=== PATIENT | male | born 1975 | race Caucasian/White ===

== ENCOUNTER 2016-12-18 15:07 | Emergency (ER) | payer BC ==
[2016-12-18 15:17] VITALS: BP 146/82
--- NOTE | 2016-12-18 16:00 | UC ---
Abdominal Pain Male HPI - HPI Summary HPI Summary: 4 DAYS OF LOWER ABDOMINAL PAIN AND BLOODY DIARRHEA. REPORTS ABOUT 15 EPISODES A DAY. NO FEVER. NO N/V. DRINKS 4-5 BEERS AND 4-5 SHOTS PER DAY. - History of Current Complaint Chief Complaint: UCAbdominalPain Stated Complaint: BLOODY DIARRHEA,ABD PAIN Time Seen by Provider: 12/18/16 15:29 Hx Obtained From: Patient Onset/Duration: Sudden Onset, Lasting Days, Still Present Timing: Intermittent Episodes Lasting: Severity Initially: Moderate Severity Currently: Moderate Pain Intensity: 5 Pain Scale Used: 0-10 Numeric Location: Other - LOWER ABD Radiates: No Character: Cramping Aggravating Factor(s):: Nothing Alleviating Factor(s): Nothing Associated Signs And Symptoms: Positive: Blood in Stool, Diarrhea. Negative: Fever, Back Pain, Constipation, Urinary Symptoms, Decreased Appetite, Nausea, Vomiting - Allergies/Home Medications Allergies/Adverse Reactions: Allergies Allergy/AdvReac Type Severity Reaction Status Date / Time Penicillins Allergy Unknown Hives Verified 12/18/16 15:59 Home Medications: Home Medications Lorazepam [Ativan 0.5 MG TAB] 0.5 mg PO PRN 12/18/16 [History] PMH/Surg Hx/FS Hx/Imm Hx Psychological History: Anxiety - Surgical History Surgical History: None - Family History Known Family History: Negative: Hypertension - Social History Alcohol Use: Daily Substance Use Type: Marijuana Smoking Status (MU): Current Some Day Smoker Type: Cigarettes Amount Used/How Often: 1/2 ppd Length of Time of Smoking/Using Tobacco: 21 years Have You Smoked in the Last Year: No Review of Systems Constitutional: Negative Respiratory: Negative Cardiovascular: Negative Gastrointestinal: Abdominal Pain, Diarrhea All Other Systems Reviewed And Are Negative: Yes Physical Exam Triage Information Reviewed: Yes Appearance: Well-Appearing, No Pain Distress, Well-Nourished Vital Signs: Initial Vital Signs Temp 99.0 F 12/18/16 15:13 Pulse 97 12/18/16 15:13 Resp 18 12/18/16 15:13 BP 146/82 12/18/16 15:13 Pulse Ox 97 12/18/16 15:13 Vital Signs Reviewed: Yes Eyes: Positive: Conjunctiva Clear ENT: Positive: Hearing grossly normal Neck: Positive: Supple Respiratory Exam: Normal Cardiovascular Exam: Normal Abdomen Description: Positive: Soft, Other: - TTP RUQ AND EPIGASTRIC. PT DECLINES RENEE. Negative: Distended, Guarding Bowel Sounds: Positive: Present Musculoskeletal: Positive: No Edema Neurological: Positive: Alert Psychological: Positive: Age Appropriate Behavior Skin: Negative: rashes Abd Pain Male Course/Dx - Course Course Of Treatment: TO [facility] BY [facility] CAR. RN CALLED REPORT TO ER - Differential Dx/Clinical Impression Provider Diagnoses: ABD PAIN, BRBPR Discharge - Discharge Plan Condition: Stable Disposition: AGAINST MEDICAL ADVICE Referrals: Felisha Barnes MD [Primary Care Provider] -
== END 2016-12-18 16:10 | disposition left against medical advice (07) ==
LOC: UCEAST 15:07
DX: K62.5 Hemorrhage of anus and rectum (principal); R10.13 Epigastric pain; R10.11 Right upper quadrant pain; Z53.20 Procedure and treatment not carried out because of patient's decision for unspecified reasons; F10.180 Alcohol abuse with alcohol-induced anxiety disorder; F19.90 Other psychoactive substance use, unspecified, uncomplicated; Z72.0 Tobacco use
CPT/HCPCS: 99212; G0463

== ENCOUNTER 2019-07-15 07:23 | Emergency (ER) | payer BC, OTHER ==
--- NOTE | 2019-07-15 07:36 | ED ---
Dizziness - HPI Summary HPI Summary: This pt is a 44 Y/O M presenting to [facility] with a CC of vertigo since 07/13/19 at 2000. He states that he was seen at yesterday and had a R eye flush without any relief. He states that yesterday when he was sitting still or moving slowly he had little to no dizziness. He states that his symptoms worsened with movement and change of position starting yesterday at 1500. He states that he has had a headache since the onset. He also states that the dizziness is described as room spinning. He denies any nausea or vomiting during these episodes and pain/pressure in his ears. He also denies any fevers, chills, CP, SOB, and sore throats. He states that he has had similar symptoms in 2014. He has no pertinent PMHx but does have a SHx of smoking cigarettes and drinking daily. - History Of Current Complaint Chief Complaint: EDDizziness Stated Complaint: DIZZY PER PT Time Seen by Provider: 07/15/19 07:25 Hx Obtained From: Patient Onset/Duration: Still Present Timing: Constant Severity Initially: Moderate Severity Currently: Moderate Character: Room Spinning Aggravating Factor(s): Position Change, Other - movement Alleviating Factor(s): Rest Associated Signs And Symptoms: Positive: Negative - sore throat, Visual Changes - room spinning. Negative: Nausea, Vomiting, Diarrhea, Chest Pain, SOB, Fever, Chills - Allergies/Home Medications Allergies/Adverse Reactions: Allergies Allergy/AdvReac Type Severity Reaction Status Date / Time Penicillins Allergy Hives Verified 07/15/19 07:27 PMH/Surg Hx/FS Hx/Imm Hx Previously Healthy: Yes Endocrine/Hematology History: Denies: Hx Diabetes Cardiovascular History: Denies: Hx Hypertension, Hx Pacemaker/ICD History: Denies: Hx Renal Disease Sensory History: Denies: Hx Hearing Aid Psychiatric History: Denies: Hx Panic Disorder - Cancer History Hx Chemotherapy: No Hx Radiation Therapy: No - Surgical History Surgical History: None Infectious Disease History: No Infectious Disease History: Denies: Hx Clostridium Difficile, Hx Hepatitis, Hx Human Immunodeficiency Virus (HIV), Hx of Known/Suspected MRSA, Hx Shingles, Hx Tuberculosis, Hx Known/ Suspected VRE, Hx Known/Suspected VRSA, History Other Infectious Disease, Traveled Outside the [place] in Last 30 Days - Family History Known Family History: Negative: Hypertension - Social History Occupation: Employed Full-time Lives: With Family Alcohol Use: Daily Alcohol Amount: beer and whiskey Hx Substance Use: Yes Substance Use Type: Reports: Marijuana Hx Tobacco Use: Yes Smoking Status (MU): Heavy Every Day Tobacco Smoker Type: Cigarettes Amount Used/How Often: 1/2 ppd Length of Time of Smoking/Using Tobacco: 21 years Have You Smoked in the Last Year: No Review of Systems Negative: Fever, Chills Positive: Other - room spinning Negative: Sore Throat, Ear Ache Negative: Chest Pain Negative: Shortness Of Breath Negative: Vomiting, Nausea All Other Systems Reviewed And Are Negative: Yes Physical Exam - Summary Physical Exam Summary: Constitutional: Well-developed, Well-nourished, Alert. (-) Distressed Skin: Warm, Dry HENT: Normocephalic; Atraumatic Eyes: Conjunctiva normal Neck: Musculoskeletal ROM normal neck. (-) JVD, (-) Stridor, (-) Tracheal deviation Cardio: Rhythm regular, rate normal, Heart sounds normal; Intact distal pulses; The pedal pulses are 2+ and symmetric. Radial pulses are 2+ and symmetric. Pulmonary/Chest wall: Effort normal. (-) Respiratory distress, (-) Wheezes, (-) Rales Abd: Soft, (-) tenderness, (-) Distension, (-) Guarding, (-) Rebound Musculoskeletal: (-) Edema Neuro: Alert, Oriented x3 Psych: Mood and affect Normal Triage Information Reviewed: Yes Vital Signs On Initial Exam: Initial Vitals Temp Pulse Resp BP Pulse Ox 97.4 F 82 16 166/109 99 07/15/19 07:25 07/15/19 07:25 07/15/19 07:25 07/15/19 07:25 07/15/19 07:25 Vital Signs Reviewed: Yes Procedures - Sedation Patient Received Moderate/Deep Sedation with Procedure: No Diagnostics - Vital Signs Vital Signs Temp Pulse Resp BP Pulse Ox 07/15/19 07:25 97.4 F 82 16 166/109 99 - Laboratory Result Diagrams: 07/15/19 12:32 07/15/19 12:32 Lab Statement: Any lab studies that have been ordered have been reviewed, and results considered in the medical decision making process. - CT Brain CT CT Interpretation Completed By: Radiologist Summary of CT Findings: No evidence for acute intracranial abnormalities. ED physician has reviewed this report. - EKG 1226 Cardiac Rate: NL - 80 BPM EKG Rhythm: Sinus Rhythm - Sinus arryhthmia ST Segment: Normal Ectopy: None Summary of EKG Findings: An EKG at 1226 reveals sinus arrhythmia, at a rate of 80 BPM, nml axis, nml intervals. No STEMI. No acute changes. Interpreted by Dr. Gomez, 1238 07/15/2019. Re-Evaluation - Re-Evaluation First Eval Re-Evaluation Time: 09:30 Change: Unchanged Comment: Pt states that his symptoms are not improving. Second Eval Re-Evaluation Time: 12:44 Change: Unchanged Comment: Pt's symptoms have still not improved, EKG ordered. Third Eval Re-Evaluation Time: 13:27 Change: Unchanged Comment: Pt was informed of the current plan of care including admission or out patient follow up. Pt states that he would like to go home and will be discharged if he has a ride home. Dizzy Course/Dx - Course Course Of Treatment: This pt is a 44 Y/O M presenting to [facility] with a CC of vertigo since 07/13/19 at 2000. He states that he was seen at yesterday and had a R eye flush without any relief. He states that yesterday when he was sitting still or moving slowly he had little to no dizziness. He states that his symptoms worsened with movement and change of position starting yesterday at 1500. He states that he has had a headache since the onset. He denies any nausea or vomiting during these episodes and pain/pressure in his ears. He had no abnormalities during his PE. An EKG at 1226 reveals sinus arrhythmia, at a rate of 80 BPM, nml axis, nml intervals. No STEMI. No acute changes. His labratory results found no significant abnormalites that pertain to his CC. His brain CT found no avute intracranial abnormalities. He was given Antivert, Benadryl, reglan, toradol, valium x2 during his ED course. Pt was informed of the current plan of care including admission or out patient follow up. Pt states that he would like to go home and will be discharged if he has a ride home. He will be discharged home with a prescription for Meclizine and instructions to follow up with his PCP in 1-3 days. - Diagnoses Provider Diagnoses: Vertigo Discharge ED - Sign-Out/Discharge Documenting (check all that apply): Patient Departure - discharge - Discharge Plan Condition: Stable Disposition: HOME Prescriptions: Meclizine TAB* [Antivert 12.5 TAB*] 25 mg PO TID PRN #15 tab PRN Reason: Vertigo Patient Education Materials: Vertigo (ED) Referrals: Felisha Barnes MD [Primary Care Provider] - 2 Days Additional Instructions: PLEASE FOLLOW UP WITH YOUR PRIMARY CARE PROVIDER IN 1-3 DAYS. RETURN TO THE EMERGENCY DEPARTMENT FOR ANY NEW OR WORSENING SYMPTOMS. TAKE THE MEDICATIONS THAT HAVE BEEN PRESCRIBED DIRECTED. - Attestation Statements Document Initiated by Scribe: Yes Documenting Scribe: Ed Lucas Provider For Whom Tirso is Documenting (Include Credential): Anjel Gomez DO Scribe Attestation: Ed Cunha, scribed for Anjel Gomez DO on 07/15/19 at 1358. Status of Scribe Document: Ready
[2019-07-15] MEDS ORDERED: NS 0.9% 1000 ML** 1,000 ML IV ONE ×2 (07:39→12:24)
[2019-07-15] MEDS ORDERED: Meclizine TAB* 12.5 MG PO ONE (07:40)
[2019-07-15] MEDS ORDERED: Ketorolac INJ* 30 MG/ML 1 ML VIAL IV PUSH ONE (07:40)
[2019-07-15] MEDS ORDERED: diPHENhydraMINE IV* 50 MG/ML 1 ml VIAL (BENADRYL) IV ONE (09:17)
[2019-07-15] MEDS ORDERED: Metoclopramide IV* 5 MG/ML 2 ML VIAL IV ONE (09:17)
[2019-07-15] MEDS ORDERED: Diazepam TAB(*) 5 MG PO ONE ×2 (09:18→12:24)
[2019-07-15] MEDS ORDERED: NS 0.9% 1000 ML** 1,000 ML IV SCH (12:30)
[2019-07-15 12:39] LABS: Hematocrit 44 % (42-52); Mean Corpuscular HGB Conc 34 g/dL (31-36); Mean Corpuscular Hemoglobin 30 pg (27-31); Mean Corpuscular Volume 87 fL (80-94); Platelet Count 197 10^3/uL (150-450); Red Blood Count 5.01 10^6 /uL (4.18-5.48); Red Cell Distribution Width 13 % (10-15); White Blood Count 11.4 10^3/uL (3.5-10.8)
[2019-07-15 12:56] LABS: Albumin 3.9 g/dL (3.2-5.2); Albumin/Globulin Ratio 1.7 (1-3); BUN/Creatinine Ratio 17.5 (8-20); C Reactive Protein 2.06 mg/L (<8.01); Calcium 9.4 mg/dL (8.6-10.3); EGFR African American 127.1 (>60); Globulin 2.3 g/dL (2-4); Potassium 3.9 mmol/L (3.5-5.0); Total Bilirubin 0.4 mg/dL (0.2-1.0); Total Protein 6.2 g/dL (6.4-8.9)
[2019-07-15 13:04] LABS: ABS Basophils 0.1 10^3/ul (0-0.2); ABS Lymphocytes 2.4 10^3/ul (1.0-4.8); ABS Monocytes 0.5 10^3/ul (0-0.8); ABS Neutrophils 8.4 10^3/ul (1.5-7.7); Eosinophil % 0.2 %
[2019-07-15 14:07] VITALS: BP 133/100
== END 2019-07-15 14:06 | disposition home or self-care (01) ==
LOC: ED 07:23
DX: R42 Dizziness and giddiness (principal); F17.210 Nicotine dependence, cigarettes, uncomplicated; Z88.0 Allergy status to penicillin
CPT/HCPCS: 36415; 70450; 80053; 85025; 85060; 86140; 93005; 96361; 96374; 96375; 99282; A9270-GY; J1200; J1885; J2765